=== PATIENT | male | born 1985 | race Caucasian/White ===

== ENCOUNTER → 2020-11-16 09:08 | Outpatient (BNVA) | payer SELFPAY | PROVIDERS: Family Provider Family Medicine; Visit Provider Dermatology | DX: Z01.89 Encounter for other specified special examinations (principal) ==

== ENCOUNTER 2025-01-30 15:27 | Outpatient (CLI) | payer BC, MEDICAID, SELFPAY ==
--- NOTE | 2025-01-30 15:30 | USCV_ITS ---
Clemente Drummond Age: 40 Gender: M : 1985 Exam Date: 01/30/2025 15:40 Ordering Phys: Sha Godinez MD Technologist: [employer] Exam Location: [facility] [place]_ Indication: neuropathy HISTORY: Lower extremity pain. PROCEDURES: Venous duplex imaging was performed in bilateral lower extremities. The following venous structures were evaluated: common femoral vein, profunda vein, proximal portion of the greater saphenous vein, superficial femoral vein, and the popliteal vein. In addition, the posterior tibial and peroneal trunk were evaluated. FINDINGS: Examination was technically limited due to body habitus. No evidence of DVT seen in any vessel visualized at this time. CONCLUSIONS No evidence of right lower extremity DVT. No evidence of left lower extremity DVT. Bernard Reese MD (Electronically Signed) Final Date: 30 January 2025 16:22 S
== END 2025-01-30 15:28 | disposition home or self-care (01) ==
PROVIDERS: Family Provider Family Medicine; PCP Family Medicine; Visit Provider Psychiatry & Neurology Neurology
DX: G62.9 Polyneuropathy, unspecified (principal)
CPT/HCPCS: 93970